=== PATIENT | male | born 1955 | race Caucasian/White ===

== ENCOUNTER → 2020-07-31 | Outpatient (CLI) | payer MEDICARE, OTHER | LOC: KOH-I 13:41 | DX: R05 Cough (principal); R91.8 Other nonspecific abnormal finding of lung field | CPT/HCPCS: 71046 ==

== ENCOUNTER → 2020-12-22 | Outpatient (CLI) | payer OTHER | LOC: KOH-I 09:38 | DX: M25.561 Pain in right knee (principal); Z79.899 Other long term (current) drug therapy; M17.11 Unilateral primary osteoarthritis, right knee | CPT/HCPCS: 73564 ==

== ENCOUNTER 2021-04-29 13:00 | Emergency (ER) | payer MEDICARE ==
[~2021-04-29] VITALS: Ht 177.8 cm; Wt 54.4 kg
== END 2021-04-29 14:30 | disposition home or self-care (01) ==
LOC: ER1 13:00
DX: U07.1 COVID-19 (principal); Z23 Encounter for immunization; J44.9 Chronic obstructive pulmonary disease, unspecified; F17.200 Nicotine dependence, unspecified, uncomplicated
CPT/HCPCS: 99283; M0243; U0002

== ENCOUNTER → 2022-03-26 | Outpatient (CLI) | payer MEDICARE | LOC: CT 03-23 11:00 | DX: I71.4 Abdominal aortic aneurysm, without rupture (principal); I65.23 Occlusion and stenosis of bilateral carotid arteries; I10 Essential (primary) hypertension; K59.00 Constipation, unspecified; J43.9 Emphysema, unspecified; F17.218 Nicotine dependence, cigarettes, with other nicotine-induced disorders | CPT/HCPCS: 36415; 82565; 84520; Q9967 ==